=== PATIENT | female | born 1975 | race African-American/Black ===

== ENCOUNTER 2017-09-03 20:17 | Emergency (ER) | payer OTHER ==
[~2017-09-03] VITALS: Ht 167.6 cm; Wt 82.0 kg
[2017-09-03 20:36] VITALS: BP 118/72
== END 2017-09-04 01:45 | disposition left against medical advice (07) ==
LOC: ER 20:36
DX: Z04.3 Encounter for examination and observation following other accident (principal); M79.622 Pain in left upper arm; Z53.21 Procedure and treatment not carried out due to patient leaving prior to being seen by health care provider